=== PATIENT | male | born 1975 | race Caucasian/White ===

== ENCOUNTER 2019-07-03 11:54 | Observation (INO) ==
[2019-07-03 13:35] LABS: Basophils # 0.1 K/mcL (0.0-0.2); Basophils % 1.1 %; Eosinophils # 0.1 K/mcL (0.0-0.6); Eosinophils % 1.1 %; Hematocrit 49.6 % (37.5-50.1); Hemoglobin 16.7 g/dL (12.9-16.9); Immature Granulocytes % 0.9 % (0-4); Lymphocytes # 1.1 K/mcL (0.6-4.6); Lymphocytes % 17.5 %; Mean Corpuscular HGB Conc 33.7 g/dL (31.6-35.5); Mean Corpuscular Hemoglobin 31.2 pg (28.0-33.3); Mean Corpuscular Volume 92.5 fL (83.0-100.0); Mean Platelet Volume 10.4 fL (9.4-12.4); Monocytes # 0.4 K/mcL (0.0-1.3); Monocytes % 6.8 %; Neutrophils # 4.7 K/mcL (1.6-8.9); Platelet Count 216 K/mcL (140-400); Red Blood Count 5.36 M/mcL (4.19-5.50); Red Cell Distribution Width 12.3 % (11.5-14.5); Segmented Neutrophils % 72.6 %; White Blood Count 6.5 K/mcL (4.3-11.1)
[2019-07-03 13:36] LABS: Bilirubin,Urine Negative (Negative); Blood,Urine Negative (Negative); Clarity,Urine Clear (Clear); Color,Urine Yellow (Yellow); Glucose,Urine (UA) Normal (Normal); Ketones,Urine Negative (Negative); Leukocyte Esterase,Urine Negative (Negative); Nitrite,Urine Negative (Negative); Protein,Urine Negative (Neg-Trace); Specific Gravity,Urine 1.019 (1.010-1.025); Urobilinogen,Urine Normal (Normal)
[2019-07-03 13:46] LABS: Amphetamine Screen,Urine Negative ng/mL (Cutoff=1000); Barbiturate Screen,Urine Negative ng/mL (Cutoff=200); Benzodiazepines Screen,Urine Negative ng/mL (Cutoff=200); Cannabinoid Screen,Urine Negative ng/mL (Cutoff = 50); Cocaine Screen,Urine Negative ng/mL (Cutoff= 300); Opiate Screen,Urine Negative ng/mL (Cutoff=300); Phencyclidine Screen,Urine Negative ng/mL (Cutoff=25)
[2019-07-03 13:51] LABS: Acetaminophen < 10 mcg/mL (10-20); BUN/Creatinine Ratio 13 (6-26); Blood Urea Nitrogen 16 mg/dL (6-20); Carbon Dioxide 30 mEq/L (23-29); Chloride 100 mEq/L (98-107); Ethanol < 10 mg/dL (Less than 10); Glucose 114 mg/dL (70-105); Osmolality,Calculated 290 (280-300); Potassium 4.3 mEq/L (3.5-5.1); Salicylate < 2.5 mg/dL (15.0-30.0); Sodium 139 mEq/L (136-145); eGFR For African Americans > 60 (> 60); eGFR For Non-African Americans > 60 (> 60)
[2019-07-03] MEDS ORDERED: hydrOXYzine pamoate 25 MG CAPSULE PO PRN (16:53)
[2019-07-03] MEDS ORDERED: Acetaminophen 325 MG TABLET PO PRN (16:53)
[2019-07-03] MEDS ORDERED: traZODone 50 MG TABLET PO PRN (16:53)
[2019-07-03] MEDS ORDERED: Haloperidol Lactate 5 MG/ML VIAL IM PRN (16:53)
[2019-07-03] MEDS ORDERED: *HR* LORazepam 1 MG TABLET PO PRN (16:53)
[2019-07-03] MEDS ORDERED: *HR* LORazepam 2 MG/ML VIAL IM PRN (16:53)
[2019-07-03] MEDS ORDERED: MOM Conc 10 ML UD.LIQ PO PRN (16:53)
[2019-07-03] MEDS ORDERED: Mag Hydrox/Al Hydrox/Simeth 30 ML UDC PO PRN (16:53)
[2019-07-03] MEDS: Nicotine 21 MG PATCH.TD24 TD SCH (17:16)
[2019-07-04 08:48] VITALS: BP 109/78
[2019-07-04] MEDS: Nicotine 21 MG PATCH.TD24 TD SCH (10:37)
[2019-07-04] MEDS ORDERED: traZODone 50 MG TABLET PO PRN (10:38)
[2019-07-04] MEDS ORDERED: BuPROPion XL (24 HR) 150 MG TABLET PO SCH (10:45)
[2019-07-04] MEDS ORDERED: FLUoxetine 20 MG CAPSULE PO SCH (10:45)
== END 2019-07-04 12:40 | disposition home or self-care (01) ==
LOC: 1ANU 11:54 → EMEROOARM 11:54 → 1ANU 16:42
PROVIDERS: ADMIT Psychiatry & Neurology Psychiatry; ATTEND Psychiatry & Neurology Psychiatry